=== PATIENT | female | born 1990 | race Caucasian/White ===

== ENCOUNTER 2021-01-10 00:55 | Emergency (ER) | payer OTHER ==
[~2021-01-10] VITALS: Ht 177.8 cm; Wt 77.1 kg
--- NOTE | 2021-01-10 01:12 | NUR ---
Placed on a 5150 hold for DTS by [facility].
[2021-01-10 01:24] LABS: HEMATOCRIT 38.4 % (31.2-41.9); MEAN CORPUSCULAR HEMOGLOBIN 27.8 uug (24.7-32.8); MEAN CORPUSCULAR VOLUME 82.6 fL (75.5-95.3); PLATELET COUNT (AUTO) 280 K/uL (179-408)
[2021-01-10 01:32] LABS: CARBON DIOXIDE 20 mmol/L (21-32); CHLORIDE 107 mmol/L (98-107); CREATININE 0.8 mg/dL (0.6-1.3); GLUCOSE 82 mg/dL (74-106); POTASSIUM 3.6 mmol/L (3.5-5.1); UREA NITROGEN, BLOOD 21 mg/dL (7-18)
[2021-01-10 01:38] LABS: ACETAMINOPHEN < 2.0 ug/mL (10-30); ALANINE AMINOTRANSFERASE 40 U/L (14-59); ALKALINE PHOSPHATASE 57 U/L (50-136); ASPARTATE AMINOTRANSFERASE 31 U/L (15-37); BILIRUBIN,DIRECT 0.1 mg/dL (0.0-0.2); BILIRUBIN,TOTAL 0.3 mg/dL (0.2-1.0); ETHANOL 151 MG/DL (0-0); TOTAL PROTEIN, SERUM 8.4 g/dL (6.4-8.2)
[2021-01-10 01:46] LABS: THYROID STIMULATING HORMONE 1.003 mIU/mL (0.358-3.740)
[2021-01-10 02:38] LABS: *AMPHETAMINE, URINE NEGATIVE (NEGATIVE); *CANNABINOID, URINE NEGATIVE (NEGATIVE); *COCCAINE, URINE NEGATIVE (NEGATIVE); *OPIATE, URINE NEGATIVE (NEGATIVE); *PHENCYCLIDINE SCREEN,URINE NEGATIVE (NEGATIVE)
--- NOTE | 2021-01-10 02:50 | NUR ---
Patient ambulating in room with steady gait, crying at times threatening to leave facility. 1:1 sitter at bedside.
--- NOTE | 2021-01-10 03:00 | NUR ---
Medically cleared by Dr Elliott.
--- NOTE | 2021-01-10 03:20 | NUR ---
Called [facility] to for admission to [facility].
--- NOTE | 2021-01-10 03:28 | NUR ---
Dr Earl Morales MD, Dr Avaols who will accept patient. Waiting for transfer info.
[2021-01-10] MEDS ORDERED: IV NS 1000 ML 1,000 ML IV ONE (03:30)
--- NOTE | 2021-01-10 03:58 | NUR ---
Margarita from [facility] called and requested transfer info .
--- NOTE | 2021-01-10 05:29 | NUR ---
Patient sleeping with no distress noted at this time.
--- NOTE | 2021-01-10 05:55 | NUR ---
Prudencio Morales [facility] call stating "We are still looking for a bed for the patient at this time. We'll call back with transfer info when we have one."
--- NOTE | 2021-01-10 07:30 | NUR ---
Pt was moved from room 2a to room 5a. Pt is sleeping with NAD noted. AMITA Cordero is at bedside for 1:1 observation. Pending call back from [facility] for placement.
--- NOTE | 2021-01-10 09:00 | NUR ---
Pt is awake, alert and oriented x 3, NAD noted. Pt is eating breakfast, sitter remains at bedside for 1:1 observation. Pending transfer to psych facility.
--- NOTE | 2021-01-10 10:11 | NUR ---
hospital phone provided for pt. pt talking to family members over the phone.
--- NOTE | 2021-01-10 10:37 | NUR ---
SHAKIRA FROM [facility] CALLED AND GAVE THE FOLLOWING INFO: PT IS GOING TO [facility], ACCEPTING DR. IS DR. BELL REPORT NUMBER IS [phone] ETA 60 MINUTES
--- NOTE | 2021-01-10 11:30 | NUR ---
PT CO LEFT TOES PAIN, MD NOTIFIED.
[2021-01-10] MEDS ORDERED: IBUPROFEN 600 MG TABLET PO ONE (11:45)
[2021-01-10] MEDS ORDERED: NICOTINE 21 MG/24HR PATCH TD SCH (11:45)
[2021-01-10] MEDS ORDERED: IBUPROFEN 600 MG TABLET ONE (11:50)
--- NOTE | 2021-01-10 12:17 | NUR ---
PT EATING LUNCH TRAY WITH GOOD APETITE.
--- NOTE | 2021-01-10 12:42 | NUR ---
[facility] TRANSFERED PT TO [facility], IN STABLE CONDITION.
--- NOTE | 2021-01-10 12:52 | NUR ---
CALLED FOR REPORT, , NO BODY PICKED UP THE PHONE.
--- NOTE | 2021-01-10 13:22 | NUR ---
CALLED [facility] AND GAVE REPORT TO WENDI.
== END 2021-01-10 12:42 | disposition short-term general hospital (02) ==
LOC: ER 00:58
DX: T42.4X2A Poisoning by benzodiazepines, intentional self-harm, initial encounter (principal); T51.0X2A Toxic effect of ethanol, intentional self-harm, initial encounter; Y92.039 Unspecified place in apartment as the place of occurrence of the external cause; Z98.1 Arthrodesis status; F32.A Depression, unspecified; Z20.822 Contact with and (suspected) exposure to COVID-19; R94.31 Abnormal electrocardiogram [ECG] [EKG]; S92.512A Displaced fracture of proximal phalanx of left lesser toe(s), initial encounter for closed fracture; X58.XXXA Exposure to other specified factors, initial encounter; Y93.89 Activity, other specified; Y92.89 Other specified places as the place of occurrence of the external cause
CPT/HCPCS: 36415; 73630; 73660; 84443; 85025; 93005; A4663; G0480; J7030